=== PATIENT | male | born 1990 | race Caucasian/White ===

== ENCOUNTER 2022-04-05 11:03 | Day surgery (SDC) | payer OTHER ==
[2022-04-05] MEDS ORDERED: Xylocaine-Mpf 2% 5 Ml Vial IJ ONE (11:04)
[2022-04-05] MEDS ORDERED: DIPRIVAN 200 MG/20 ML IV ONE (12:08)
[2022-04-05] MEDS ORDERED: Lactated Ringers 1,000 ML IV ONE (12:29)
--- NOTE | 2022-04-05 13:22 | XRAY ---
Indication: Bilateral L4-S1 MBB. Intraoperative fluoroscopy provided for 23 seconds. Single digital spot image submitted for interpretation demonstrates posterior needle tips projecting over the expected left and right L4-S1 nerve roots. Correlate with intraoperative findings/report.
--- NOTE | 2022-04-05 13:28 | XRAY ---
23 seconds fluoroscopy time in surgery for bilateral L4-S1 MBB.
== END 2022-04-05 12:35 | disposition home or self-care (01) ==
LOC: SDC-PAIN 11:03
PROVIDERS: ATTEND Psychiatry & Neurology Pain Medicine
DX: M47.816 Spondylosis without myelopathy or radiculopathy, lumbar region (principal); Z79.899 Other long term (current) drug therapy
CPT/HCPCS: 64493; 64494; 72020; 77002; J2704

== ENCOUNTER 2022-06-14 10:23 | Day surgery (SDC) | payer OTHER ==
[2022-06-14] MEDS ORDERED: Marcaine Mpf 0.5% Vial 30 Ml IJ ONE (10:24)
[2022-06-14] MEDS ORDERED: DIPRIVAN 200 MG/20 ML IV ONE (11:30)
[2022-06-14] MEDS ORDERED: Versed 2 MG/2 ML Injection ONE (11:32)
[2022-06-14] MEDS ORDERED: Lactated Ringers 1,000 ML IV ONE (12:45)
--- NOTE | 2022-06-14 13:12 | XRAY ---
Indication: Bilateral L4-S1 MBB. Intraoperative fluoroscopy provided for 23 seconds. Single digital spot image submitted for interpretation demonstrate posterior needle tips projecting over the expected left and right L4-S1 nerve roots. Correlate with intraoperative findings/report.
--- NOTE | 2022-06-14 13:35 | XRAY ---
23 seconds fluoroscopy time in surgery for bilateral L4-S1 MBB.
== END 2022-06-14 12:00 | disposition home or self-care (01) ==
LOC: SDC-PAIN 10:23
PROVIDERS: ATTEND Psychiatry & Neurology Pain Medicine
DX: M47.816 Spondylosis without myelopathy or radiculopathy, lumbar region (principal); Z79.899 Other long term (current) drug therapy
CPT/HCPCS: 64493; 64494; 72020; 77002; J2250; J2704

== ENCOUNTER 2022-07-12 14:24 | Day surgery (SDC) | payer OTHER ==
[2022-07-12] MEDS ORDERED: Marcaine Mpf 0.5% Vial 30 Ml IJ ONE (14:25)
[2022-07-12] MEDS ORDERED: XYLOCAINE-MPF 1% 5ML SDV IJ ONE (14:25)
[2022-07-12] MEDS ORDERED: Depo-Medrol 40 MG/ML IM ONE (14:25)
[2022-07-12] MEDS ORDERED: Lactated Ringers 1,000 ML IV ONE (16:33)
[2022-07-12] MEDS ORDERED: DIPRIVAN 200 MG/20 ML IV ONE ×2 (16:50→16:57)
--- NOTE | 2022-07-13 07:42 | XRAY ---
Indication: Right L4-S1 RFA. Intraoperative fluoroscopy provided for 39 seconds. 4 digital spot image submitted for interpretation demonstrates posterior needle tips projecting over the expected right L4-S1 nerve roots. Correlate with intraoperative findings/report.
--- NOTE | 2022-07-13 22:05 | XRAY ---
39 seconds of fluoroscopy was used in surgery for a right L4-S1 RFA.
== END 2022-07-12 17:25 | disposition home or self-care (01) ==
LOC: SDC-PAIN 14:24
PROVIDERS: ATTEND Psychiatry & Neurology Pain Medicine
DX: M47.816 Spondylosis without myelopathy or radiculopathy, lumbar region (principal); Z79.899 Other long term (current) drug therapy
CPT/HCPCS: 64635; 64636; 72100; 77002; J1030; J2704

== ENCOUNTER 2022-07-19 14:28 | Day surgery (SDC) | payer OTHER ==
[2022-07-19] MEDS ORDERED: Marcaine Mpf 0.5% Vial 30 Ml IJ ONE (14:29)
[2022-07-19] MEDS ORDERED: XYLOCAINE-MPF 1% 5ML SDV IJ ONE (14:29)
[2022-07-19] MEDS ORDERED: Depo-Medrol 40 MG/ML IM ONE (14:29)
[2022-07-19] MEDS ORDERED: DIPRIVAN 200 MG/20 ML IV ONE (16:44)
[2022-07-19] MEDS ORDERED: Lactated Ringers 1,000 ML IV ONE (17:41)
--- NOTE | 2022-07-19 19:43 | XRAY ---
Indication: Left L4-S1 RFA. Intraoperative fluoroscopy provided for 20 seconds. 4 digital spot images submitted for interpretation demonstrates posterior needle tips projecting over the expected left L4-S1 nerve roots. Correlate with intraoperative findings/report.
--- NOTE | 2022-07-20 10:58 | XRAY ---
20 seconds of fluoroscopy was used in surgery for a left L4-S1 RFA.
== END 2022-07-19 17:03 | disposition home or self-care (01) ==
LOC: SDC-PAIN 14:28
PROVIDERS: ATTEND Psychiatry & Neurology Pain Medicine
DX: M47.816 Spondylosis without myelopathy or radiculopathy, lumbar region (principal); Z79.899 Other long term (current) drug therapy
CPT/HCPCS: 64635; 64636; 72100; 77002; J1030; J2704

== ENCOUNTER 2022-11-15 12:24 | Day surgery (SDC) | payer OTHER ==
[2022-11-15] MEDS ORDERED: LIDOCAINE HCL 1% 50 MG/5 ML VL PF IJ ONE (12:25)
[2022-11-15] MEDS ORDERED: Decadron 4 MG INJ IV ONE (12:25)
--- NOTE | 2022-11-15 14:21 | XRAY ---
16 seconds of fluoroscopy was used in surgery for a left piriformis injection.
--- NOTE | 2022-11-15 14:24 | XRAY ---
Indication: Left piriformis injection. Intraoperative fluoroscopy provided for 16 seconds. Single digital spot image submitted for interpretation demonstrates posterior needle tip projecting over the left piriformis muscle. Small amount of contrast injected for needle tip placement. Correlate with intraoperative findings/report.
== END 2022-11-15 13:58 | disposition home or self-care (01) ==
LOC: SDC-PAIN 12:24
PROVIDERS: ATTEND Psychiatry & Neurology Pain Medicine
DX: M79.18 Myalgia, other site (principal); Z79.899 Other long term (current) drug therapy
CPT/HCPCS: 20552; 72170; 77002; J1100; J2001; Q9966

== ENCOUNTER 2023-01-17 12:50 | Day surgery (SDC) | payer OTHER ==
[2023-01-17] MEDS ORDERED: BUPIVACAINE 0.5% VIAL IJ ONE (12:51)
[2023-01-17] MEDS ORDERED: Depo-Medrol 40 MG/ML IM ONE (12:51)
[2023-01-17] MEDS ORDERED: DIPRIVAN 200 MG/20 ML IV ONE (15:19)
--- NOTE | 2023-01-17 16:27 | XRAY ---
Indication: Left SI joint injection. Intraoperative fluoroscopy provided for 15 seconds. 2 digital spot images submitted for interpretation demonstrates posterior needle tip projecting over the left SI joint. Correlate with intraoperative findings/report.
--- NOTE | 2023-01-17 16:29 | XRAY ---
15 seconds of fluoroscopy was used in surgery for a left sacroiliac joint injection.
[2023-01-17] MEDS ORDERED: Lactated Ringers 1,000 ML IV ONE (16:43)
== END 2023-01-17 15:50 | disposition home or self-care (01) ==
LOC: SDC-PAIN 12:50
PROVIDERS: ATTEND Psychiatry & Neurology Pain Medicine
DX: M46.1 Sacroiliitis, not elsewhere classified (principal); Z79.899 Other long term (current) drug therapy
CPT/HCPCS: 27096; 72170; 77002; J1030; J2704; G0260

== ENCOUNTER 2024-05-21 10:09 | Day surgery (SDC) | payer OTHER ==
[2024-05-21] MEDS ORDERED: LIDOCAINE HCL 1% 50 MG/5 ML VL PF IJ ONE (10:10)
[2024-05-21] MEDS ORDERED: Decadron 4 MG INJ IV ONE (10:10)
[2024-05-21] MEDS ORDERED: BUPIVACAINE 0.5% VIAL IJ ONE (10:10)
[2024-05-21] MEDS ORDERED: Depo-Medrol 40 MG/ML IM ONE (10:10)
[2024-05-21] MEDS ORDERED: DIPRIVAN 200 MG/20 ML IV ONE (12:12)
--- NOTE | 2024-05-21 13:43 | XRAY ---
Indication: Left SI joint and piriformis injection. Intraoperative fluoroscopy provided for 44 seconds. 2 digital spot images submitted for interpretation demonstrates posterior needle tip projecting over the left SI joint. Second needle tip over left piriformis. Small amount of contrast injected for both needle tip placement. Correlate with intraoperative findings/report.
--- NOTE | 2024-05-21 13:50 | XRAY ---
44 seconds of fluoroscopy was used in surgery for a left sacroiliac joint and piriformis injection.
[2024-05-21] MEDS ORDERED: Lactated Ringers 1,000 ML IV ONE (14:33)
== END 2024-05-21 12:41 ==
LOC: SDC-PAIN 10:09
PROVIDERS: ATTEND Psychiatry & Neurology Pain Medicine
DX: M46.1 Sacroiliitis, not elsewhere classified (principal); M79.18 Myalgia, other site
CPT/HCPCS: 20552; 27096; 72170; 77002; J1100; J2001; J2704; Q9966; G0260